=== PATIENT | female | born 1950 | race Caucasian/White ===

== ENCOUNTER 2018-10-06 10:03 | Emergency (ER) | payer MEDICARE, OTHER ==
[~2018-10-06] VITALS: Ht 165.1 cm; Wt 90.7 kg
[2018-10-06] MEDS ORDERED: VENTOLIN HFA 1818 GM INH (10:15)
[2018-10-06] MEDS ORDERED: ADVAIR HFA 230M12 GM INH ×2 (10:15→11:53)
[2018-10-06 11:06] LABS: ABSOLUTE BASOPHILS 0.1 thou/uL (0.0-0.2); ABSOLUTE EOSINOPHILS 0.3 thou/uL (0.0-0.7); ABSOLUTE LYMPHOCYTES 2.5 thou/uL (0.8-5.3); ABSOLUTE MONOCYTES 0.7 thou/uL (0.0-1.2); ABSOLUTE NEUTROPHILS 4.7 thou/uL (1.6-8.1); BASOPHILS 1.3 %; EOSINOPHILS 3.6 %; HEMATOCRIT 42.2 % (37.0-47.0); HEMOGLOBIN 14.6 gm/dL (12.0-15.0); LYMPHOCYTES 29.9 %; MCH 31.2 pg (26.0-34.0); MCHC 34.5 g/dL (28.0-37.0); MCV 90.4 fL (80.0-100.0); MONOCYTES 8.3 %; NUCLEATED RBCS 0 /100WBC; PLATELET COUNT* 265 thou/uL (150-400); POLYS 56.9 %; RBC 4.67 mil/uL (4.20-5.00); RDW-CV 13.2 % (10.5-14.5); WBC 8.3 thou/uL (4.0-11.0)
[2018-10-06 11:15] LABS: ANION GAP 7 mmol/L (7-16); BUN 12 mg/dL (7-18); CALCIUM 9.4 mg/dL (8.5-10.1); CHLORIDE 104 mmol/L (98-107); CO2 30 mmol/L (21-32); CREATININE 0.9 mg/dL (0.6-1.3); GLUCOSE 100 mg/dL (70-99); POTASSIUM 4.2 mmol/L (3.5-5.1); SODIUM 141 mmol/L (136-145)
[2018-10-06 11:26] LABS: ALBUMIN 3.9 g/dL (3.4-5.0); ALKALINE PHOSPHATASE 47 U/L (46-116); NT-PRO BRAIN NAT PEPTIDE 30 pg/mL (<300); SGOT 27 U/L (15-37); SGPT 52 U/L (30-65); TOTAL BILIRUBIN 0.4 mg/dL (<0.1-1.0); TOTAL PROTEIN 7.9 g/dL (6.4-8.2); TROPONIN-I LEVEL <0.06 ng/mL (<0.06)
[2018-10-06] MEDS ORDERED: MEDROLDOSEPACK PO (11:53)
[2018-10-06 12:29] VITALS: BP 167/84
--- NOTE | 2018-10-06 16:18 | EKG ---
[place] [address] ELECTROCARDIOGRAM REPORT Name: ELKE TANNER [id number] Admission: 10/06/18 Attend Phys: Discharge: 10/06/18 Date of : 52 Report #: [id number] THIS REPORT FOR: //name// [facility] ED Test Date: 2018-10-06 Test Time: 10:44:28 Pat Name: ELKE TANNER Department: Room: Gender: F Rn Angiography: : 1950 Requested By: Gwen Lopez Order Number: [id number] MD: Al Luciano Measurements Intervals [place] Rate: 81 P: 15 OK: 151 QRS: 18 QRSD: 109 T: 10 QT: 363 QTc: 422 Interpretive Statements Sinus rhythm Low voltage, precordial leads Abnormal R-wave progression, late transition artifact noted No previous ECG available for comparison Electronically Signed On 10-06-2018 16:18:40 CDT by Al Luciano [email or web address] <ELECTRONICALLY SIGNED> By: Al Luciano MD, [facility] 10/06/18 1618 D: 07/1043 1044 Al Luciano MD, FACC /EPI
== END 2018-10-06 12:29 | disposition home or self-care (01) ==
LOC: M.ERS 10:03
PROVIDERS: Nurse Practitioner Family
DX: J20.9 Acute bronchitis, unspecified (principal); J45.901 Unspecified asthma with (acute) exacerbation; R42 Dizziness and giddiness; R51 Headache; Z88.2 Allergy status to sulfonamides

== ENCOUNTER → 2018-10-21 | Outpatient (CLI) | payer MEDICARE, OTHER ==
[~2018-10-21] MED LIST: ADVAIR HFA 230M12 GM INH; MEDROLDOSEPACK PO; VENTOLIN HFA 1818 GM INH
== END ==
LOC: M.PUL 09:55
DX: J45.998 Other asthma (principal); Z88.2 Allergy status to sulfonamides

== ENCOUNTER → 2018-11-18 | Outpatient (CLI) | payer MEDICARE, OTHER | LOC: M.RAD 08:45 | DX: Z12.31 Encounter for screening mammogram for malignant neoplasm of breast (principal); Z13.820 Encounter for screening for osteoporosis; Z78.0 Asymptomatic menopausal state ==

== ENCOUNTER 2019-02-15 19:09 | Emergency (ER) | payer MEDICARE, OTHER ==
[~2019-02-15] VITALS: Ht 165.1 cm; Wt 90.7 kg
[2019-02-15] MEDS ORDERED: ASA81BEC PO (19:19)
[2019-02-15 19:41] LABS: ABSOLUTE BASOPHILS 0.1 thou/uL (0.0-0.2); ABSOLUTE EOSINOPHILS 0.3 thou/uL (0.0-0.7); ABSOLUTE LYMPHOCYTES 3.1 thou/uL (0.8-5.3); ABSOLUTE MONOCYTES 0.7 thou/uL (0.0-1.2); ABSOLUTE NEUTROPHILS 4.3 thou/uL (1.6-8.1); EOSINOPHILS 3.6 %; HEMATOCRIT 41.4 % (37.0-47.0); HEMOGLOBIN 14.3 gm/dL (12.0-15.0); LYMPHOCYTES 36.5 %; MCH 31.3 pg (26.0-34.0); MCHC 34.5 g/dL (28.0-37.0); MCV 90.7 fL (80.0-100.0); MONOCYTES 8.5 %; MPV 7.9 fl. (7.2-11.1); NUCLEATED RBCS 0 /100WBC; PLATELET COUNT* 251 thou/uL (150-400); POLYS 50.4 %; RBC 4.56 mil/uL (4.20-5.00); RDW-CV 12.7 % (10.5-14.5); WBC 8.5 thou/uL (4.0-11.0)
[2019-02-15 19:52] LABS: ANION GAP 9 mmol/L (7-16); BUN 13 mg/dL (7-18); CALCIUM 8.8 mg/dL (8.5-10.1); CHLORIDE 104 mmol/L (98-107); CO2 28 mmol/L (21-32); CREATININE 1.2 mg/dL (0.6-1.3); GLUCOSE 101 mg/dL (70-99); POTASSIUM 3.7 mmol/L (3.5-5.1); SODIUM 141 mmol/L (136-145)
[2019-02-15 20:00] LABS: APTT 24.9 Seconds (25.0-31.3); PROTIME 10.5 Seconds (9.20-11.50)
[2019-02-15 20:04] LABS: ALBUMIN 3.9 g/dL (3.4-5.0); ALKALINE PHOSPHATASE 46 U/L (46-116); CK-MB MASS < 0.5 ng/mL (<0.5-3.6); LIPASE 173 U/L (73-393); MAGNESIUM 2.2 mg/dL (1.8-2.4); NT-PRO BRAIN NAT PEPTIDE 70 pg/mL (<300); SGOT 20 U/L (15-37); SGPT 35 U/L (30-65); TOTAL BILIRUBIN 0.2 mg/dL (<0.1-1.0); TOTAL PROTEIN 8.1 g/dL (6.4-8.2)
[2019-02-15 20:15] VITALS: BP 152/77
--- NOTE | 2019-02-17 10:50 | EKG ---
[place] [address] ELECTROCARDIOGRAM REPORT Name: ELKE TANNER Room: [facility]#: [id number] Admission: 02/15/19 Attend Phys: Discharge: 02/15/19 Date of : 52 Report #: [id number] THIS REPORT FOR: //name// [facility] ED Test Date: 2019-02-15 Test Time: 19:16:11 Pat Name: ELKE TANNER Department: Room: Gender: F Physician Practice Administrator: JD : 1950 Requested By: Werner Mancera Order Number: [id number] MD: Zaid Quintero Measurements Intervals [place] Rate: 93 P: 51 NE: 159 QRS: 14 QRSD: 105 T: 26 QT: 346 QTc: 431 Interpretive Statements Sinus rhythm Nonspecific ST segment depression Compared to ECG 10/06/2018 10:44:28 No significant changes Electronically Signed On 02-17-2019 10:50:27 [employer] by Zaid Quintero [email or web address] <ELECTRONICALLY SIGNED> By: Zaid Quintero MD, [facility] 02/17/19 1050 1916 15 Zaid Quintero MD, FACC /EPI
== END 2019-02-15 20:18 | disposition home or self-care (01) ==
LOC: M.ERS 19:09
PROVIDERS: Family Medicine
DX: R07.89 Other chest pain (principal); R06.02 Shortness of breath; R00.2 Palpitations; J45.909 Unspecified asthma, uncomplicated; Z88.2 Allergy status to sulfonamides; Z91.012 Allergy to eggs; Z91.018 Allergy to other foods; Z91.09 Other allergy status, other than to drugs and biological substances

== ENCOUNTER → 2019-08-21 | Outpatient (CLI) | payer MEDICARE, OTHER ==
[~2019-08-21] MED LIST changes: +ASA81BEC PO
== END ==
LOC: M.CT 08:27
PROVIDERS: ATTEND Optometrist
DX: S00.11XA Contusion of right eyelid and periocular area, initial encounter (principal); X58.XXXA Exposure to other specified factors, initial encounter; Y93.89 Activity, other specified; Y92.89 Other specified places as the place of occurrence of the external cause; Y99.8 Other external cause status

== ENCOUNTER 2020-05-27 09:40 | Emergency (ER) | payer MEDICARE, OTHER ==
[~2020-05-27] VITALS: Ht 162.6 cm; Wt 90.7 kg
[2020-05-27] MEDS ORDERED: FLONASE 0.05%50 MCG NARES (11:16)
[2020-05-27] MEDS ORDERED: EAR WAX REMOVAL15 ML EA. EAR (11:16)
[2020-05-27 11:35] VITALS: BP 180/88
== END 2020-05-27 11:37 | disposition home or self-care (01) ==
LOC: M.ERS 09:40
DX: H92.01 Otalgia, right ear (principal); H61.21 Impacted cerumen, right ear; J45.909 Unspecified asthma, uncomplicated; Z88.2 Allergy status to sulfonamides; Z91.018 Allergy to other foods